=== PATIENT | female | born 1970 | race American Indian/Alaskan Native ===

== ENCOUNTER 2016-12-16 10:03 | Outpatient (CLI) | payer BC ==
--- NOTE | 2016-12-16 15:01 | Mammography Report ---
BILATERAL DIGITAL SCREENING MAMMOGRAM with CAD: 12/16/16 10:03:00 CLINICAL: Routine screening. COMPARISON:12/27/15 and 12/12/14 FINDINGS: The breasts are predominantly fatty with a few bilateral scattered fibroglandular densities. Bilateral asymmetries are unchanged compared to prior exams.Right outer biopsy clip. No mass, architectural distortion or suspicious calcifications. IMPRESSION: No mammographic evidence of malignancy. BI-RADS CATEGORY: 2 -- Benign RECOMMENDATION: Routine mammographic screening in one year. COMMENT: Patient follow-up letters are generated by our [employer] application.
== END 2016-12-16 10:04 | disposition home or self-care (01) ==
LOC: SPVWC 10:03
PROVIDERS: ATTEND Internal Medicine
DX: Z12.31 Encounter for screening mammogram for malignant neoplasm of breast (principal)
CPT/HCPCS: 77067; G0202

== ENCOUNTER 2018-02-02 08:25 | Outpatient (CLI) | payer OTHER ==
--- NOTE | 2018-02-02 15:33 | Mammography Report ---
BILATERAL DIGITAL SCREENING MAMMOGRAM with CAD: 02/02/18 08:25:00 CLINICAL: Routine screening. COMPARISON:12/16/16 FINDINGS: The breasts have increased in density and are heterogeneously dense compared to the prior exam. Right parenchymal asymmetries on both views require additional imaging. Previously identified bilateral parenchymal asymmetries are stable.No architectural distortion or suspicious calcifications. IMPRESSION: Right asymmetries requiring further workup. BI-RADS CATEGORY: 0 -- Additional Imaging Evaluation Required RECOMMENDATION: Recall for right lateralmedial , spot magnification CC and MLO views and right breast ultrasound if needed. ACR BI-RADS MAMMOGRAPHIC CODES: 0 = Needs additional imaging evaluation; 1 = Negative; 2 = Benign; 3 = Probably benign; 4 = Suspicious; 5 = Malignant; 6 = Known biopsy-proven malignancy COMMENT: 1. Dense breast tissue, i.e., adenosis, fibrocystic changes, etc., may obscure an underlying neoplasm. 2. Approximately 10% of cancers are not detected with mammography. 3. A negative mammography report should not delay biopsy if a clinically suspicious mass is present. COMMENT: Patient follow-up letters are generated via our [employer] application.
== END 2018-02-02 08:26 | disposition home or self-care (01) ==
LOC: SPVWC 08:25
DX: Z12.31 Encounter for screening mammogram for malignant neoplasm of breast (principal)
CPT/HCPCS: 77067

== ENCOUNTER 2018-03-09 13:33 | Outpatient (CLI) | payer OTHER ==
--- NOTE | 2018-03-09 14:47 | Mammography Report ---
RIGHT DIGITAL DIAGNOSTIC MAMMOGRAM and RIGHT BREAST ULTRASOUND: 03/09/18 13:33:00 CLINICAL: Recalled for asymmetries. COMPARISON:02/02/18 FINDINGS: Lateralmedial and spot magnification MLO and CC views were performed. Partial effacement of asymmetries on both views. Ultrasound of the right breast (including all four quadrants and the retroareolar area) was performed and demonstrated normal fibroglandular and fatty structures. No mass, cyst or shadowing. IMPRESSION: Mammographic asymmetries are consistent with benign scar from previous reduction mammoplasty. BI-RADS CATEGORY: 2 - - Benign RECOMMENDATION: Routine mammographic screening in one year. ACR BI-RADS MAMMOGRAPHIC CODES: 0 = Needs additional imaging evaluation; 1 = Negative; 2 = Benign; 3 = Probably benign; 4 = Suspicious; 5 = Malignant; 6 = Known biopsy-proven malignancy COMMENT: 1. Dense breast tissue, i.e., adenosis, fibrocystic changes, etc., may obscure an underlying neoplasm. 2. Approximately 10% of cancers are not detected with mammography. 3. A negative mammography report should not delay biopsy if a clinically suspicious mass is present. COMMENT: Patient follow-up letters are generated via our [employer] application.
== END 2018-03-09 13:34 | disposition home or self-care (01) ==
LOC: SPVWC 13:33
DX: N64.89 Other specified disorders of breast (principal)

== ENCOUNTER 2019-03-21 10:35 | Outpatient (CLI) | payer OTHER ==
--- NOTE | 2019-03-21 11:43 | Mammography Report ---
Screening mammogram: Routine views compared to prior exams dating back to 2008. In the right MLO projection there is a circumscribed slightly lobulated nodule in the far posterior breast just below the pectoralis reflection. This is not identified on prior exams however it is unclear as to whether this area was included on all prior exams. There is no comparable finding in the CC projection. A biopsy marker is noted in the lateral right breast. This asymmetric density in upper outer left breast. These latter findings are all unchanged from numerous prior exams. CAD used. Impression: Right breast asymmetry. Recommendation: Additional compression imaging of the right breast and ultrasound, as needed. BI-RADS CATEGORY: 0 = Needs additional imaging evaluation ACR BI-RADS MAMMOGRAPHIC CODES: 0 = Needs additional imaging evaluation; 1 = Negative; 2 = Benign; 3 = Probably benign; 4 = Suspicious; 5 = Malignant; 6 = Known biopsy-proven malignancy COMMENT: 1. Dense breast tissue, i.e., adenosis, fibrocystic changes, etc., may obscure an underlying neoplasm. 2. Approximately 10% of cancers are not detected with mammography. 3. A negative mammography report should not delay biopsy if a clinically suspicious mass is present.
--- NOTE | 2019-03-21 11:54 | Mammography Report ---
BONE DENSITY STUDY: Long-term steroid use. DEFINITIONS: BMD = Bone Mineral Density T-score = BMD related to mean peak bone mass of young adult (mean expressed in Standard Deviation) Z-score = Age matched BMD expressed in SD World Health Organization (WHO) Diagnostic Criteria Normal T-score > -1 SD Osteopenia T-score between -1 and -2.4 SD Osteoporosis T-score -2.5 SD or below FINDINGS: The weighted average BMD of lumbar spine L1-L4 is 1.151 with a T-score of 0.0. The weighted average BMD of the left hip is 1.180 with a T-score of 1.0. IMPRESSION: The patient's average T-score is diagnostic for normal bone density and low relative risk for fracture. NOTE: BMD is not the only risk factor for fracture; also consider factors such as the patient's age, risk of falling, previous osteoporotic fracture, family history of osteoporotic fractures, current smoker, and low body weight. Beasley's triangle is a region of interest in femur, predominantly of trabecular bone. It is not a true anatomic site, and ISCD does not recommend its use clinically.
== END 2019-03-21 10:36 | disposition home or self-care (01) ==
LOC: SPVWC 10:35
PROVIDERS: ATTEND Internal Medicine
DX: Z12.31 Encounter for screening mammogram for malignant neoplasm of breast (principal); E55.9 Vitamin D deficiency, unspecified; Z79.52 Long term (current) use of systemic steroids
CPT/HCPCS: 77067; 77080

== ENCOUNTER 2019-04-07 14:46 | Outpatient (CLI) | payer OTHER ==
--- NOTE | 2019-04-07 16:38 | Mammography Report ---
RIGHT DIGITAL DIAGNOSTIC MAMMOGRAM WITH CAD 04/07/2019 RIGHT BREAST ULTRASOUND INDICATION: Recall to evaluate a right asymmetry. TECHNIQUE: Digital right mammographic imaging was performed. This examination was interpreted with t he benefit of Computer-Aided Detection (CAD) analysis. COMPARISON: 03/21/2019 FINDINGS: Breast Density: The breasts are almost entirely fatty. A poorly marginated oval low-density focal asymmetry persists on LM, and spot magnification MLO and e xaggerated CC views. It is located centrally far posterior in the breast. Ultrasound Findings: Targeted ultrasound evaluation was performed of the area of interest. An oval heterogeneous predominantly hyperechoic mass with a mostly smooth margin is identified far posterior near the pectoral muscle deep to the nipple. It measures 1.0 x 0.5 x 1.0 cm and correlates with the m ammographic density. IMPRESSION: A probably benign 1 cm hyperechoic central posterior mass near the pectoral muscle. Recom mend 6 month follow-up right mammogram and right breast ultrasound if needed. BI-RADS Category 3: Probably Benign. A "normal" or negative report should not discourage follow up or biopsy of a clinically significant f inding. A written summary of these findings will be mailed to the patient. The patient will be entered into a mammography reporting system which will genGeneratereminder letter for the patient's next appointmen t at the appropriate interval. FURTHER INFORMATION: According to the [employer], yearly mammograms are recommend ed starting at age 40 and continuing as long as a woman is in good health. Breast MRI is recommended for women with an approximately 20-25% or greater lifetime risk of breast cancer, including women wi th a strong family history of breast or ovarian cancer and women who have been treated for Hodgkin's disease. Signer Name: Oskar Garcia MD Signed: 04/07/2019 4:34 PM Workstation Name: [id number]
== END 2019-04-07 14:47 | disposition home or self-care (01) ==
LOC: SPVWC 14:46
PROVIDERS: ATTEND Internal Medicine
DX: R92.8 Other abnormal and inconclusive findings on diagnostic imaging of breast (principal)

== ENCOUNTER 2020-05-24 10:40 | Outpatient (CLI) | payer OTHER ==
--- NOTE | 2020-05-24 17:16 | Mammography Report ---
DIGITAL SCREENING MAMMOGRAM WITH CAD, 05/24/2020 INDICATION: Routine screening mammography. SCREENING MAMMOGRAM TECHNIQUE: Digital bilateral 2D mammography was obtained in the craniocaudal and mediolateral obliq ue projections. This examination was interpreted with the benefit of Computer-Aided Detection analysi s. COMPARISON: 12/16/2016 FINDINGS: Breast Density: There are scattered areas of fibroglandular density. There is no evidence of dominant mass, suspicious calcifications or architectural distortion in eithe r breast. Asymmetric density in the left breast as slightly decreased in size but is otherwise again noted. There is also a stable nodular density in the right breast and old biopsy change on the right. IMPRESSION: Follow up recommendation: Routine yearly BI-RADS Category 2: Benign. A "normal" or negative report should not discourage follow up or biopsy of a clinically significant f inding. A written summary of these findings will be mailed to the patient. The patient will be entered into a mammography reporting system which will generate a reminder letter for the patient's next appointmen t at the appropriate interval. The [employer] recommends yearly mammograms starting at age 40 and continuing as l bruno as a woman is in good health. Breast MRI is recommended for women with an approximate 20-25% or greater lifetime risk of breast cancer, including women with a strong family history of breast or ova rory cancer or who have been treated for Hodgkin's disease. Signer Name: Uziel Stokes MD Signed: 05/24/2020 5:12 PM Workstation Name: [id number]
== END 2020-05-24 10:41 | disposition home or self-care (01) ==
LOC: SPVWC 10:40
PROVIDERS: ATTEND Internal Medicine
DX: Z12.31 Encounter for screening mammogram for malignant neoplasm of breast (principal); N64.89 Other specified disorders of breast
CPT/HCPCS: 77067

== ENCOUNTER 2021-06-11 08:36 | Outpatient (CLI) | payer OTHER ==
--- NOTE | 2021-06-11 09:48 | Mammography Report ---
BILATERAL DIGITAL SCREENING MAMMOGRAM WITH CAD HISTORY: Screening mammogram. TECHNIQUE: Routine digital mammographic imaging performed. This examination was interpreted with amalia guzman benefit of Computer-aided Detection analysis. COMPARISON: 05/24/2020, 03/21/2019, 02/02/2018, 12/16/2016. FINDINGS: Breast Density: scattered fibroglandular appearance of the breast tissue. Digital CC and MLO views demonstrate no mammographic evidence of malignancy. Stable left upper outer breast focal asymmetry. Long-term stability would support a benign etiology. IMPRESSION: No mammographic evidence of malignancy. If the clinical examination remains stable, recommend bilate ral mammogram in approximately one year. BIRADS 2: Benign Finding(s). FURTHER INFORMATION: According to the [employer], yearly mammograms are recommend ed starting at age 40 and continuing as long as a woman is in good health. Clinical Breast Exams shou ld be part of a periodic health exam-about every 3 years for women in their 20s and 30s and every yea r for women 40 and over. Breast self exam is an option for women starting in their 20s. Any breast ch billie noted on a breast self exam should be reported promptly to the patient's healthcare provider. Br east MRI is recommended for women with an approximately 20-25% or greater lifetime risk of breast can cer, including women with a strong family history of breast or ovarian cancer and women who have been treated for Hodgkin's disease. A negative Mammography report should not discourage follow up or biopsy of a clinically significant f inding and/or abnormality. Dense breast tissue may obscure small neoplasms. The patient will be entered into a reminder system with a target due date for the next screening mamm ogram. Signer Name: Nestor Gomez MD Signed: 06/11/2021 9:44 AM Workstation Name: [id number]
== END 2021-06-11 08:37 | disposition home or self-care (01) ==
LOC: SPVWC 08:36
PROVIDERS: ATTEND Internal Medicine
DX: Z12.31 Encounter for screening mammogram for malignant neoplasm of breast (principal); N64.89 Other specified disorders of breast
CPT/HCPCS: 77067

== ENCOUNTER 2022-06-12 08:38 | Outpatient (CLI) | payer OTHER ==
--- NOTE | 2022-06-12 11:52 | Mammography Report ---
DIGITAL SCREENING MAMMOGRAM WITH CAD, 06/12/2022 CLINICAL INFORMATION / INDICATION: Routine screening mammography. TECHNIQUE: Digital bilateral 2D mammography was obtained in the craniocaudal and mediolateral obliqu e projections. This examination was interpreted with the benefit of Computer-Aided Detection analysis . COMPARISON: 06/11/2021, 05/24/2020 FINDINGS: Breast Density: There are scattered areas of fibroglandular density. No dominant mass, suspicious calcifications, or architectural distortion in either breast. Stable benign focal asymmetry upper outer left breast. Overall, no interval change. IMPRESSION: No mammographic evidence of malignancy. Follow up recommendation: Routine yearly screening mammogram. BI-RADS Category 2: BENIGN. A "normal" or negative report should not discourage follow up or biopsy of a clinically significant f inding. A written summary of these findings will be mailed to the patient. The patient will be entered into a mammography reporting system which will generate a reminder letter for the patient's next appointmen t at the appropriate interval. The [employer] recommends yearly mammograms starting at age 40 and continuing as l bruno as a woman is in good health. Breast MRI is recommended for women with an approximate 20-25% or greater lifetime risk of breast cancer, including women with a strong family history of breast or ova rory cancer or who have been treated for Hodgkin's disease. Signer Name: Missy Vazquez MD Signed: 06/12/2022 11:47 AM Workstation Name: [id number]
== END 2022-06-12 08:39 | disposition home or self-care (01) ==
LOC: SPVWC 08:38
PROVIDERS: ATTEND Internal Medicine
DX: Z12.31 Encounter for screening mammogram for malignant neoplasm of breast (principal)
CPT/HCPCS: 77067